=== PATIENT | male | born 1945 | race Caucasian/White ===

== ENCOUNTER 2023-04-28 07:59 | Day surgery (SDC) | payer OTHER, BC ==
[2023-04-27 12:51] VITALS: BMI 24.6
[~2023-04-28 07:59] MED LIST: ACETAMINOPHEN 325 MG TABLET (FP) PO PRN; LACTATED RINGERS SOLUTION 1,000 ML IV SCH; ONDANSETRON 4 MG/2 ML VIAL IVPUSH PRN; oxyCODONE HCL 5 MG TABLET PO PRN
[2023-04-28] MEDS ORDERED: TRANEXAMIC ACID 1000 MG/10 ML VIAL IVPUSH ONE ×2 (08:16)
[2023-04-28] MEDS ORDERED: CEFAZOLIN 2 GM in DEXTROSE 5%-WATER - 50 ML IVPB ONE ×2 (08:16→08:30)
[2023-04-28] MEDS ORDERED: CELECOXIB 200 MG CAPSULE PO ONE ×2 (08:16)
[2023-04-28] MEDS ORDERED: LACTATED RINGERS SOLUTION 1,000 ML IV SCH ×2 (08:30→09:30)
[2023-04-28] MEDS ORDERED: ACETAMINOPHEN 325 MG TABLET (FP) PO PRN (08:31)
[2023-04-28] MEDS ORDERED: ONDANSETRON 4 MG/2 ML VIAL IVPUSH PRN (08:31)
[2023-04-28] MEDS ORDERED: oxyCODONE HCL 5 MG TABLET PO PRN (08:31)
[2023-04-28] MEDS ORDERED: MIDAZOLAM HCL 2 MG/2 ML SINGLE DOSE VIAL ONE (08:33)
[2023-04-28] MEDS ORDERED: THROMBIN (BOVINE) 5,000 UNIT VIAL TP ONE (09:08)
[2023-04-28] MEDS ORDERED: ceFAZolin SODIUM 1 GM VIAL ONE ×3 (09:08→10:06)
[2023-04-28] MEDS ORDERED: BUPIVACAINE LIPOSOME/PF (EXPAREL) 266 MG/20 ML VIAL ONE (09:16)
[2023-04-28] MEDS ORDERED: BUPIVACAINE HCL/PF 0.5% (5 MG/ML) 30 ML VIAL IJ ONE (09:16)
[2023-04-28] MEDS ORDERED: ACETAMINOPHEN INJECTION 100 ML IVPB ONE (09:17)
[2023-04-28] MEDS ORDERED: VANCOMYCIN 1,000 MG VIAL (RESTRICTED TO ID ONLY) ONE (09:31)
[2023-04-28] MEDS ORDERED: PROPOFOL 20 ML ONE ×2 (10:00→10:57)
[2023-04-28] MEDS ORDERED: TRANEXAMIC ACID 1000 MG/10 ML VIAL ONE (10:04)
[2023-04-28] MEDS ORDERED: DEXAMETHASONE SOD PHOSPHATE 4 MG/1 ML VIAL ONE (10:41)
[2023-04-28] MEDS ORDERED: ONDANSETRON 4 MG/2 ML VIAL ONE (10:41)
[2023-04-28] MEDS ORDERED: FENTANYL CITRATE/PF 50 MCG/ML VIAL ONE (11:57)
[2023-04-28] MEDS: oxyCODONE HCL 5 MG TABLET PO PRN ×3 (13:52→23:34)
[2023-04-28] MEDS: SENNOSIDES/DOCUSATE COMBO (SENNA PLUS) TABLET (UD) PO SCH ×2 (19:13→21:28)
[2023-04-28] MEDS: MULTIVITAMINS (DAILY MVI) TABLET (FP) PO SCH (19:14)
[2023-04-28] MEDS: PANTOPRAZOLE 40 MG TABLET PO SCH (19:14)
[2023-04-28] MEDS: CEFAZOLIN SODIUM 2 GM in DEXTROSE 5%-WATER 100 ML IVPB SCH (19:17)
[2023-04-28 20:50] VITALS: RESP 18
[2023-04-29] MEDS: CEFAZOLIN SODIUM 2 GM in DEXTROSE 5%-WATER 100 ML IVPB SCH (01:41)
[2023-04-29] MEDS: oxyCODONE HCL 5 MG TABLET PO PRN ×4 (04:44→15:58)
[2023-04-29 06:04] VITALS: TEMP 98.6
[2023-04-29] MEDS ORDERED: LEVOTHYROXINE NA 125 MCG TABLET (FP) PO SCH (07:00)
[2023-04-29] MEDS ORDERED: ASPIRIN 325 MG TABLET PO SCH (08:00)
[2023-04-29 08:30] LABS: HEMATOCRIT 35.4 % (35.4-49); HEMOGLOBIN 11.5 G/dL (11.7-16.9); MCH 31.6 pg (25.7-33.7); MCHC 32.4 g/dl (32.0-35.9); MEAN CELL VOLUME 97.5 fl (80-96); MEAN PLT VOLUME 8.7 fl (7.5-11.1); PLATELET COUNT 139.5 10^3/uL (134-434); RBC 3.63 10^6/uL (4.00-5.60); RDW 13.5 % (11.9-15.9); WHITE BLOOD COUNT 12.5 10^3/uL (4.0-10.8)
[2023-04-29] MEDS: PANTOPRAZOLE 40 MG TABLET PO SCH (09:12)
[2023-04-29] MEDS: SENNOSIDES/DOCUSATE COMBO (SENNA PLUS) TABLET (UD) PO SCH (09:12)
[2023-04-29 09:38] VITALS: BP 110/68; PULSE 62
[2023-04-29] MEDS ORDERED: LOSARTAN POTASSIUM 50 MG TABLET PO SCH (10:00)
[2023-04-29] MEDS: MULTIVITAMINS (DAILY MVI) TABLET (FP) PO SCH (12:53)
== END 2023-04-29 18:14 | disposition home health service (06) ==
LOC: FASUSAT 07:59 → UNDOADMIN 07:59 → FM/S 07:59 → EDSTATUS 09:30 → FM/S 13:05 → FASUSAT 04-29 18:14
PROVIDERS: ATTEND Orthopaedic Surgery
PROC: 8E0Y0CZ Robotic Assisted Procedure of Lower Extremity, Open Approach (ICD-10-PCS; 2023-04-28)
PROC: 0SRC0J9 Replacement of Right Knee Joint with Synthetic Substitute, Cemented, Open Approach (ICD-10-PCS; principal; 2023-04-28 10:07)
DX: M17.11 Unilateral primary osteoarthritis, right knee (principal); I10 Essential (primary) hypertension; E03.9 Hypothyroidism, unspecified
CPT/HCPCS: 20985; 27447; C1776; S2900; 36415; 73560-TC-RT-FY; 85027; 94760; 97010-GP; 97116-GP; 97162-GP; C1713; C1889